=== PATIENT | female | born 1975 | race Caucasian/White ===

== ENCOUNTER 2021-11-19 09:47 | Day surgery (SDC) | payer MEDICARE, MEDICAID ==
[~2021-11-19] VITALS: Ht 165.1 cm; Wt 68.6 kg
[~2021-11-19 09:47] MED LIST: SODIUM CHLORIDE 0.9% 1,000 ML IV ONE
[2021-11-19] MEDS ORDERED: 0.9% SODIUM CHLORIDE 10 ML VIAL IVP ONE (09:48)
[2021-11-19] MEDS ORDERED: PROPOFOL 1% 20 ML VIAL IVP ONE (09:48)
[2021-11-19] MEDS ORDERED: FentaNYL CITRATE PF 100 MCG/2 ML VIAL IVP ONE (09:48)
[2021-11-19] MEDS ORDERED: KETAMINE HCL 50 MG/ML 10 ML VIAL IVP ONE (09:48)
[2021-11-19] MEDS ORDERED: MIDAZOLAM HCL 2 MG/2 ML VIAL IVP ONE (09:48)
[2021-11-19] MEDS ORDERED: RINGERS SOLUTION,LACTATED 1,000 ML IV ONE ×2 (10:00→11:00)
[2021-11-19 10:26] LABS: COVID AG,FIA SOURCE NASAL SWAB
[2021-11-19] MEDS ORDERED: [UNRECOGNIZED DRUG - CODE] PO (11:06)
[2021-11-19] MEDS ORDERED: RIZA10TA42 PO (11:06)
[2021-11-19] MEDS ORDERED: HYDR-4069 PO (11:06)
[2021-11-19] MEDS ORDERED: LIDOCAINE/PF 1% 30 ML VIAL ONE (11:08)
[2021-11-19] MEDS ORDERED: BUPIVACAINE HCL/PF 0.5% 30 ML VIAL ONE (11:09)
[2021-11-19] MEDS ORDERED: VANCOMYCIN HCL 1 GM/VIAL ONE (11:10)
[2021-11-19] MEDS ORDERED: SODIUM CL IRRIG SOLN BAG 3,000 ML IRRIG ONE (11:22)
[2021-11-19] MEDS ORDERED: EREN70AU2 SQ (11:24)
[2021-11-19] MEDS ORDERED: CRAN500C5 PO (11:24)
[2021-11-19] MEDS ORDERED: MAGN500T4 PO (11:24)
[2021-11-19] MEDS ORDERED: GABA600T10 PO (11:24)
[2021-11-19] MEDS ORDERED: Ketamine PO (11:24)
[2021-11-19] MEDS ORDERED: FentaNYL CITRATE PF 100 MCG/2 ML VIAL IVP PRN (13:00)
[2021-11-19] MEDS ORDERED: HYDROmorphone 2 MG/ML VIAL IVP PRN (13:00)
[2021-11-19] MEDS ORDERED: MEPERIDINE-PF 25 MG/ML VIAL IVP PRN (13:00)
[2021-11-19] MEDS ORDERED: OXYGEN THERAPY IH SCH (20:00)
== END 2021-11-19 14:30 | disposition home or self-care (01) ==
LOC: SURGERY 09:47
PROVIDERS: ATTEND Podiatrist Foot & Ankle Surgery
DX: M86.172 Other acute osteomyelitis, left ankle and foot (principal); J45.909 Unspecified asthma, uncomplicated; F17.210 Nicotine dependence, cigarettes, uncomplicated; F12.90 Cannabis use, unspecified, uncomplicated; G43.909 Migraine, unspecified, not intractable, without status migrainosus; G89.29 Other chronic pain; Z79.899 Other long term (current) drug therapy; Z98.890 Other specified postprocedural states; Z86.73 Personal history of transient ischemic attack (TIA), and cerebral infarction without residual deficits
CPT/HCPCS: 28110; 73630; 84703; 87070 ×2; 87075; 87205; 87426; 88305; C9803; J0690; J2250; J2704; J3010; J3370; J3490 ×2; J7120